=== PATIENT | male | born 1970 | race Caucasian/White ===

== ENCOUNTER → 2021-06-17 15:22 | Outpatient (CLI) | payer OTHER, SELFPAY ==
--- NOTE | ~2021-06-17 | XR_ITS ---
XR wrist RT min 3V DATE: 06/17/2021 15:47 INDICATION: Bilateral wrist pain TECHNIQUE: 4 views COMPARISON: None FINDINGS: There is severe osteoarthritic change at the first carpometacarpal joint. There is osteoart hritis at the metacarpal phalangeal joints with prominent spurring particularly at the heads of the t hird and fourth metacarpal bones. No fracture or dislocation, periosteal reaction or bone destruction, erosive change or chondrocalcino sis is detected. IMPRESSION: Polyarticular osteoarthritis Reviewed, dictated and finalized at location B.
--- NOTE | ~2021-06-17 | XR_ITS ---
XR wrist LT min 3V DATE: 06/17/2021 15:47 INDICATION: Bilateral wrist pain TECHNIQUE: 4 views COMPARISON: None FINDINGS: There is severe osteoarthritic change at the first carpometacarpal joint. There is osteoarthritic change at the metacarpophalangeal joints as well. No fracture or dislocation, periosteal reaction or bone destruction, erosive change or chondrocalcino sis. IMPRESSION: Polyarticular osteoarthritis, particularly at the first carpometacarpal joint Reviewed, dictated and finalized at location B. IMPRESSION: Polyarticular osteoarthritis, particularly at the first carpometaca rpal joint
== END ==
PROVIDERS: Visit Provider Plastic Surgery
DX: M19.031 Primary osteoarthritis, right wrist (principal); M19.032 Primary osteoarthritis, left wrist
CPT/HCPCS: 73110

== ENCOUNTER 2021-08-08 09:32 | Outpatient (CLI) | payer OTHER, SELFPAY ==
--- NOTE | 2021-08-08 11:00 | NEURO_ITS ---
Impression: # Complains of numbness of hands. # Bilateral Carpal Tunnel Syndrome, right more than left. # Right early ulnar neuropathy. # Needle/EMG exam not requested. Nerve Conduction Studies Anti Sensory Summary Table Stim Site NR Peak (ms) P-T Amp (?V) Site1 Site2 Delta-P (ms) Dist (cm) Cb (m/s) Left Median Anti Sensory (2-3nd Digit) Wrist 4.4 20.1 Wrist 2-3nd Digit 4.4 14.0 32 Wrist 4.8 16.2 Wrist 2-3nd Digit 4.4 14.0 32 Right Median Anti Sensory (2-3nd Digit) Wrist 5.5 12.4 Wrist 2-3nd Digit 5.5 14.0 25 Wrist 5.4 16.9 Wrist 2-3nd Digit 5.5 14.0 25 Left Radial Anti Sensory (Base 1st Digit) Wrist 2.4 14.7 Wrist Base 1st Digit 2.4 0.0 Right Radial Anti Sensory (Base 1st Digit) Wrist 2.4 50.4 Wrist Base 1st Digit 2.4 0.0 Left Ulnar Anti Sensory (5th Digit) Wrist 2.6 36.1 Wrist 5th Digit 2.6 14.0 54 Right Ulnar Anti Sensory (5th Digit) Wrist 2.9 9.9 Wrist 5th Digit 2.9 14.0 48 Motor Summary Table Stim Site NR Onset (ms) O-P Amp (mV) Site1 Site2 Delta-0 (ms) Dist (cm) Cb (m/s) Left Median Motor (Abd Poll Brev) Wrist 4.3 1.1 Elbow Wrist 5.2 30.0 58 Elbow 9.5 1.2 Right Median Motor (Abd Poll Brev) Wrist 5.9 1.9 Elbow Wrist 4.9 27.0 55 Elbow 10.8 2.2 Left Ulnar Motor (Abd Dig Minimi) Wrist 2.2 7.7 A Elbow Wrist 5.3 30.0 57 A Elbow 7.5 5.7 B Elbow Wrist 4.2 24.0 57 B Elbow 6.4 5.3 Right Ulnar Motor (Abd Dig Minimi) Wrist 2.5 6.7 A Elbow Wrist 5.8 29.0 50 A Elbow 8.3 5.5 B Elbow Wrist 3.4 20.0 59 B Elbow 5.9 4.6 F Wave Studies NR F-Lat (ms) L-R F-Lat (ms) Left Median (Mrkrs) (Abd Poll Brev) 30.23 0.88 Right Median (Mrkrs) (Abd Poll Brev) 31.11 0.88 Left Ulnar (Mrkrs) (Abd Dig Min) 28.04 0.82 Right Ulnar (Mrkrs) (Abd Dig Min) 28.86 0.82 MTDD
== END 2021-08-08 09:33 | disposition home or self-care (01) ==
LOC: ANHNEURO 09:36
PROVIDERS: PCP Nurse Practitioner; Visit Provider Plastic Surgery
DX: R20.2 Paresthesia of skin (principal); G56.03 Carpal tunnel syndrome, bilateral upper limbs; G56.21 Lesion of ulnar nerve, right upper limb
CPT/HCPCS: 95911

== ENCOUNTER → 2021-09-23 00:43 | Outpatient (CLI) | payer OTHER, SELFPAY ==
[2021-09-24 10:57] LABS: SARS-CoV-2 RNA PCR Negative
== END ==
PROVIDERS: PCP Nurse Practitioner; Visit Provider Plastic Surgery
DX: Z01.812 Encounter for preprocedural laboratory examination (principal); Z20.822 Contact with and (suspected) exposure to COVID-19
CPT/HCPCS: C9803; U0003; U0005

== ENCOUNTER 2021-09-23 14:10 | Outpatient (CLI) | payer OTHER, SELFPAY ==
[2021-09-23 15:13] LABS: Anion Gap 11 mmol/L (8-16); Blood Urea Nitrogen 16 mg/dL (9-20); Calcium 9.9 mg/dL (8.4-10.2); Carbon Dioxide 25 mmol/L (22-30); Chloride 104 mmol/L (98-107); Estimated Glomerular Filt Rate > 60; Glucose 135 mg/dL (65-110); Potassium 4.1 mmol/L (3.4-5.0); Sodium 140 mmol/L (137-145)
== END 2021-09-23 14:11 | disposition home or self-care (01) ==
LOC: ANHSURGERY 14:15
PROVIDERS: Anesthesiology; PCP Nurse Practitioner; Visit Provider Plastic Surgery
DX: Z79.899 Other long term (current) drug therapy (principal)
CPT/HCPCS: 36415; 80048

== ENCOUNTER 2021-09-26 01:41 | Day surgery (SDC) | payer OTHER, SELFPAY ==
[2021-09-23 08:26] VITALS: BMI 29.5
--- NOTE | 2021-09-23 08:33 | PC.NURSE ---
Report to the Outpatient Waiting Room, entrance under the green pavilion located off [facility], at time 6:00 on date 09/26/21. OR Time: 7:30. - You will be asked a series of questions to screen for COVID 19 for your protection. - A mask is required within the hospital. - No visitors are allowed at this time. Preoperative COVID Testing Requirements: COVID TEST 09/23 AT 9:00 No COVID Test needed if: (proof is required; if not received patient will have Rapid Test prior to entry) - Patient has received COVID Vaccine at least 14 days prior to procedure date or - Patient has positive COVID test result within last 90 days of surgery date. COVID Test needed if above criteria is not met If not COVID vaccinated a COVID test must be conducted within 72 hours of surgery and patient is asked to isolate self from time of testing until procedure. You will go to the [facility] for your COVID testing. The [facility] site is located at the corner of [address] [facility]. You will only be called if COVID results are positive and your surgeon may reschedule your elective surgery date. Patients may have clear liquids (water, carbonated beverages, clear teas, apple juice) until 3 hours prior to surgery (4:30) with a maximum of 20 ounces. - No food from midnight until time of surgery Take the following medications with a SIP of water the morning of surgery: NONE Medications to discontinue per physician: VITAMINS/SUPPLEMENTS Date to take last dose: 09/22/21 Please no make-up, nail greek, hairspray, perfume, deodorant, or body powder the day of surgery. No jewelry (including any body piercings) or valuables the day of surgery, leave them at home. Please take a shower or bath the night before, or the morning of, surgery with an antibacterial soap. Wear comfortable, loose fitting clothing. - Jewelry must be removed prior to entering the operating room. Rings and piercings that are not removed may be cut off. - The hospital will not accept responsibility for valuables. - Please leave all valuables, including medications, at home the day of surgery. If you are going home after surgery, a licensed driver operator must drive you home. - NO public transportation without another adult. - We recommend that an adult stay with you for 24 hours following discharge. - We also recommend that you do not drive, make important decision, drink alcoholic beverages, or take any drugs that were not prescribed by your health care provider for at least 24 hours after your discharge time. Follow any additional instructions given to you from your surgeon. Telephone instructions given to GRACE MENDEZ and asked if any additional questions and then verbalized understanding. Patient advised to call surgeon office or pre surgery nurse liaison [phone] if any additional questions.
--- NOTE | 2021-09-25 15:52 | WPDANESEPPF ---
Anes - Initial Pre Proc Eval Procedure: Operation Date: 09/26/21 07:30 Proposed Procedures p Bilateral Open Carpal Tunnel Release - Ankur Parks MD Date/Time: 09/25/21 15:52 Surgeon: Ankur Parks MD Pre Op Diagnosis: bilateral carpal tunnel syndrome Patient Data Age: 51 Gender: M Height: 1.75 m Weight: 90.72 kg Allergies Allergy/AdvReac Type Severity Reaction Status Date / Time No Known Allergies Allergy Verified 09/23/21 08:24 Home Medications Medication Instructions Recorded Confirmed Type adalimumab [Humira(CF) Pen] 40 mg SUBCUT USEASDIRECTD 09/23/21 09/26/21 History atorvastatin 20 mg PO DAILY 09/23/21 09/26/21 History lisinopril-hydrochlorothiazide 1 tablet PO DAILY 09/23/21 09/26/21 History multivitamin [One A Day] 1 tablet PO DAILY 09/23/21 09/26/21 History Patient hx anesthesia problems: none Family hx anesthesia problems: none Results Review: All pre-operative results and documents have been reviewed as part of the pre-operative evaluation. [facility], [facility] Past Medical History Medical History HTN (hypertension) Hyperlipidemia Overweight (BMI 25.0-29.9) Psoriasis Smoker Social History Social History Smoking packs per day: 1 Smoking cigarettes per day: 20.0 Years smoked: 39 Smoking pack-years: 39.00 Smoking status: Current every day smoker Tobacco type: cigarettes Alcohol intake: current Alcohol use details: RARE Substance use: never Substance use type: does not use Living arrangements: with family Spiritual care concerns: No Anes - Eval Final PreProcedure Day of Procedure 09/25/21 15:52 Patient weight: obese Heart: regular rate and rhythm Lungs: clear to auscultation and normal air movement Airway: Mallampati scale class II Neurological: alert and oriented Last oral intake: >/= 8 hours ASA classification: III Emergent: no Anesthetic plan: proceed Anesthesia type and monitoring: general GIVS and LMA Results Review: All pre-operative results and documents have been reviewed as part of the pre-operative evaluation. Informed Consent: The patient's anesthetic plan and its attendant risks and benefits were discussed with the patient/family/POA. Questions were solicited and answers provided to the satisfaction of the patient/family/POA.
[2021-09-26 06:16] VITALS: BP 121/80; PULSE 82; RESP 20; TEMP 35.9; O2SAT 100
[2021-09-26] MEDS: LACTATED RINGERS 1,000 ML 30 ML IV CONT (06:25)
[2021-09-26] MEDS: LIDO 1%/EPINEPHRINE 1:100,000 50 ML VIAL 10 ML INFILTRATE (07:50)
[2021-09-26 08:14] VITALS: BP 115/62; PULSE 73; RESP 16; O2SAT 94
--- NOTE | 2021-09-26 08:17 | W.PM.PROC2 ---
Procedure Note - Detailed Date of Procedure 09/26/21 Pre-op Diagnosis bilateral carpal tunnel syndrome Post-op Diagnosis same Procedure Performed Bilateral open carpal tunnel release Surgeon Ankur Parks MD Anesthesia MAC Description of Procedure The skin over the patient's right and left carpals tunnel was marked in the holding area. He was taken to the operating room where the was placed supine on the operating table. A time-out was held and confirmed. The extremities were prepped and draped in usual fashion. The surgical sites was marked for the incisions and both were locally infiltrated with 1% lidocaine with epinephrine. The pneumatic tourniquet was utilized on the right an Esmarch on the left due to the location of the IV in the forearm. The incision was made 1st on the right as marked and dissection was carried bluntly through the subcutaneous tissue to the palmar aponeurosis. This and the transverse carpal retinaculum were incised with a 15 blade opening the canal. Under 3 point retraction the ligament was divided distally and proximally to completely release it. No unusual anatomy was noted. The wound was closed with interrupted nylon suture. The tourniquet was released. The usual bandage was applied. Attention turned to the left side for the hand and distal forearm were wrapped with the Esmarch for exsanguination and the Esmarch was left wrapped on the mid right forearm for the tourniquet. The incision was incised as marked and dissection was carried bluntly through the subcutaneous tissue. The palmar fascia transverse retinaculum were incised with a 15. Blade opening the canal. Under 3 point retraction the ligament was divided distally and proximally to release it. No unusual anatomy was noted on either side. The skin wound on this side was closed with interrupted 5 0 nylon. The usual bandage was applied and the patient was discharged from the operating stable condition. Estimated Blood Loss 0 Tourniquet Time 20 Drains No Packing No Pathology none sent Complications No immediate complications Condition stable Disposition same day
[2021-09-26 08:45] VITALS: BP 122/85
== END 2021-09-26 09:00 | disposition home or self-care (01) ==
PROVIDERS: PCP Nurse Practitioner; Visit Provider Plastic Surgery
PROC: (CPT 64721; principal; 2021-09-26 07:30)
DX: G56.03 Carpal tunnel syndrome, bilateral upper limbs (principal); I10 Essential (primary) hypertension; E78.5 Hyperlipidemia, unspecified; L40.9 Psoriasis, unspecified; F17.210 Nicotine dependence, cigarettes, uncomplicated; E66.9 Obesity, unspecified; Z68.30 Body mass index [BMI] 30.0-30.9, adult
CPT/HCPCS: 64721; 36415; 80048; A9270; C9803; J2250; J2704; J3010; J7120; U0003; U0005

== ENCOUNTER 2024-03-30 08:16 | Emergency (ER) | payer OTHER, SELFPAY ==
[2024-03-30 08:42] VITALS: BP 126/83; PULSE 75; RESP 16; TEMP 36.2; O2SAT 100
--- NOTE | 2024-03-30 08:48 | ED.LOWEXIN ---
HPI - Extremity Injury (Lower) General Chief Complaint: Extremity Injury, Lower Stated Complaint: pain in rt foot from screw injury Time Seen by Provider: 03/30/24 08:48 Source: patient, RN notes reviewed and old records reviewed Mode of arrival: ambulatory Limitations: no limitations History of Present Illness HPI Narrative: patient presents complaining of right foot pain. He was doing a project, a screw went through his shoe and into the arch of the right foot. He reports injury happened about 1 week ago. He is unsure of tetanus status. He states that he has had increased pain to the site of the injury over the past couple of days and is Noticing some purulent drainage. . He denies any fever, chills, sweats. In addition, he complains that his left ear is juicy . States pain for about 2 months. Denies injury or trauma. Has been using [id number] swimmer's ear drops without good relief. Related Data Home Medications Medication Instructions Recorded Confirmed adalimumab 40 mg/0.4 mL 40 mg subcut USEASDIRECTD 09/23/21 09/26/21 subcutaneous pen kit (Humira(CF) Pen) atorvastatin 20 mg tablet mg 03/30/24 hydrochlorothiazide 25 mg tablet mg 03/30/24 03/30/24 Allergies Allergy/AdvReac Type Severity Reaction Status Date / Time No Known Allergies Allergy Verified 03/30/24 08:44 Review of Systems Review of Systems: All systems reviewed & are unremarkable except as noted in HPI and below Constitutional: Constitutional: Reports no additional constitutional complaints ENT: Reports system reviewed and no additional complaints, except as documented and Reports otalgia Cardiovascular: Cardiovascular: Reports no additional cardiovascular complaints Respiratory: Respiratory: Reports no additional respiratory complaints Gastrointestinal: Gastrointestinal: Reports no additional gastrointestinal complaints Integumentary/Breasts: Skin/Breast: Reports as per HPI [facility] Past Medical History Medical History HTN (hypertension) Hyperlipidemia Overweight (BMI 25.0-29.9) Psoriasis Smoker Social History Social History Smoking packs per day: 1 Smoking cigarettes per day: 20.0 Years smoked: 39 Smoking pack-years: 39.00 Smoking status: Current every day smoker Tobacco type: cigarettes Alcohol intake: current Alcohol use details: RARE Substance use: never Substance use type: does not use Living arrangements: with family Spiritual care concerns: No Comments At the time of my signature, I reviewed and agree with the nursing past medical, surgical, social, and family history. There is no relevant family history pertinent to the patient complaint. Exam Const: General: cooperative, no acute distress, alert and awake Orientation/consciousness: oriented to person, oriented to place and oriented to time HENMT: Head: normal to inspection Ears: TM's normal bilaterally and other ( Left ear canal with erythema, drainage, tenderness) Mouth: Yes oropharynx normal Neck: Lymphatic: no lymphadenopathy noted Resp: Effort & Inspection: normal respiratory effort and able to speak in complete sentences Auscultation: clear to auscultation bilaterally, no crackles, no rales, no rhonchi and no wheezes Cardio: Palpation: normal PMI Rate: regular rate Rhythm: regular rhythm Heart sounds: S1 normal heart sound present and S2 normal heart sound present Skin: Trauma: puncture ( right foot, approx 1 cm with some surrounding erythema and induration) Neuro: General: oriented to person, oriented to place and oriented to time Cranial nerves: Yes CN's II-XII intact bilaterally Psych: Appearance: grossly normal Thought process: Normal thought process present Insight: Good insight present (Psych) Judgement: Good judgement present (Psych) Course Course Level of Care: Express Care Visit Vital Signs Vital signs: Vital Signs Temperature 97.1
[2024-03-30] MEDS: TETANUS,DIPHTHERIA,AC PERTUSSIS ADULT (0.5 ML) BOOSTRIX IM (09:11)
== END 2024-03-30 09:17 | disposition home or self-care (01) ==
PROVIDERS: Emergency Provider Nurse Practitioner Family
DX: S91.331A Puncture wound without foreign body, right foot, initial encounter (principal); L08.9 Local infection of the skin and subcutaneous tissue, unspecified; W26.8XXA Contact with other sharp object(s), not elsewhere classified, initial encounter; Z23 Encounter for immunization; F17.210 Nicotine dependence, cigarettes, uncomplicated; I10 Essential (primary) hypertension; E78.5 Hyperlipidemia, unspecified; L40.9 Psoriasis, unspecified
CPT/HCPCS: 90471; 90715; 99213; G0463

== ENCOUNTER 2024-07-31 08:01 | Emergency (ER) | payer OTHER, SELFPAY ==
--- NOTE | 2024-07-31 08:10 | ED.GENADULT ---
HPI - General Adult General Chief complaint: Extremity Problem,Nontraumatic Stated complaint: knee pain Time Seen by Provider: 07/31/24 08:10 Source: patient Mode of arrival: ambulatory Limitations: no limitations History of Present Illness HPI narrative: 54-year-old male patient presents to the [facility] with complaints of bilateral knee pain but more so to the left knee. Patient states that he works on his knees a lot does wear knee pads during working. 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 Patient states that the left knee has been swollen, red and feels that it might be infected. Patient states has been like this for the past 3-4 days. Denies any fevers, body aches or chills. Patient denies any issues with walking. Patient denies any specific injury that he is aware of Related Data Home Medications Medication Instructions Recorded Confirmed atorvastatin 20 mg tablet 20 mg DIRECTED 03/30/24 07/31/24 hydrochlorothiazide 25 mg tablet 25 mg DIRECTED 03/30/24 07/31/24 adalimumab-ryvk 40 mg/0.4 mL 40 mg subcut DIRECTED 07/31/24 07/31/24 subcutaneous auto-injector kit Allergies Allergy/AdvReac Type Severity Reaction Status Date / Time No Known Allergies Allergy Verified 07/31/24 08:12 Review of Systems Review of Systems: CONSTITUTIONAL: Denies fever, chills, or sweats. EYES: Denies visual changes, redness, or discharge. ENT: Denies rhinorrhea, congestion, sore throat, or otalgia. CARDIOVASCULAR: Denies chest pain, palpitations, or edema. RESPIRATORY: Denies cough or dyspnea. GASTROINTESTINAL: Denies abdominal pain, nausea, vomiting, or diarrhea. GENITOURINARY: Denies dysuria or hematuria. SKIN: Denies rash or itching. MUSCULOSKELETAL: Denies back pain, joint pain, or myalgia. positive left knee pain times 3-4 days NEUROLOGIC: Denies headache, numbness, or weakness. PSYCHIATRIC: Denies anxiety or depression. [facility] Past Medical History Medical History HTN (hypertension) Hyperlipidemia Overweight (BMI 25.0-29.9) Psoriasis Smoker Social History Social History Smoking packs per day: 1 Smoking cigarettes per day: 20.0 Years smoked: 39 Smoking pack-years: 39.00 Smoking status: Current every day smoker Tobacco type: cigarettes Alcohol intake: current Alcohol use details: RARE Substance use: never Substance use type: does not use Living arrangements: with family Spiritual care concerns: No Comments At the time of my signature I agree with nursing past medical history, surgical, social, and family history. There is no relevant family history pertinent to the presenting complaint. Exam Narrative: GENERAL: Well-appearing, well-nourished, and in no acute distress. HEAD: Normocephalic, atraumatic. EYES: PERRLA and EOMI. ENT: Nares clear, no rhinorrhea or epistaxis. Mucous membranes moist. NECK: Supple. No lymphadenopathy CHEST: Clear to auscultation. No respiratory distress. HEART: Regular rate and rhythm. No murmur heard. Normal peripheral pulses. ABDOMEN: Soft, nontender, nondistended, normal active bowel sounds. EXTREMITIES: Patient is able to bear weight and ambulate without pain. No surface trauma, STS, or obvious effusion. Patient has a approximately 2.5 cm in diameter scabbed burn area to the lateral distal of the left knee. No discharge is present at this time. overlying erythema and warmth present to the left knee that streaks down to the lower extremity. The L knee is with/without obvious asymmetry or deformity when compared to the R knee. there is swelling noted to the Left distal lower extremity as compared to the right side. Patient is able to do deep knee bend with symmetry, fully extend knee, internal and external rotation. No tendernss to palpation of the patella, no effusion or ballottement. No tenderness over the infrapatellar tendon. No tenderness over the medial or lateral joint lone ot the medial or lateral tibial plateaus. no tenderness over the proximal fibular head. no tenderness, fullness, or mass of the popliteal fossa. No quadriceps tenderness. No laxity of the ACL, PCL, MCL, or LCL. No collateral ligament laxity to valgus or vargus stress. Negative adelfo/drawer sign. Negative Roseann. Negative Apley compression and/or distraction. Distal motor and neurovascular status intact. SKIN: Warm, dry, no rash. NEURO: No focal deficits. Alert and oriented x3. Course Course Level of Care: Express Care Visit Vital Signs Vital signs: Vital Signs Temperature 36.3 C L 07/31/24 08:12 Pulse Rate 100 07/31/24 08:12 Respiratory Rate 18 07/31/24 08:12 Blood Pressure 125/84 07/31/24 08:12 Pulse Oximetry 99 07/31/24 08:12 Oxygen Delivery Room Air 07/31/24 08:12 Temperature 36.3 C L 07/31/24 08:12 Pulse Rate 100 07/31/24 08:12 Respiratory Rate 18 07/31/24 08:12 Blood Pressure 125/84 07/31/24 08:12 Pulse Oximetry 99 07/31/24 08:12 Oxygen Delivery Room Air 07/31/24 08:12 vital signs reviewed Medical Decision Making MDM Narrative Medical decision making narrative: discussed with patient most likely has a cellulitis infection of the left lower leg due to what appears to be a a small burn area that he got at work. Discussed with patient we will discharge him home with oral antibiotics and topical antibiotic to put on the scabbed area. Discussed with patient to make sure that he inspects the knee area every day after work and tends to any wounds he would have gotten that day to decrease risk of worsening infection such as cellulitis. Patient verbalized understanding denies any other questions or concerns at this time. Differential Diagnosis Differential Diagnosis: differential diagnosis: Knee contusion, sprain, ligament injury, patellar dislocation, joint dislocation, patella or tibial plateau fracture, Alexandra's cyst, DVT, meniscus tear, PCL tear, prepatellar bursitis, septic joint, gout, tumor. Children: [id number] or Alejandra-Schlatter disease. Vital Signs Vital Signs: Vital Signs Temperature 36.3 C L 07/31/24 08:12 Pulse Rate 100 07/31/24 08:12 Respiratory Rate 18 07/31/24 08:12 Blood Pressure 125/84 07/31/24 08:12 Pulse Oximetry 99 07/31/24 08:12 Oxygen Delivery Room Air 07/31/24 08:12 Temperature 36.3 C L 07/31/24 08:12 Pulse Rate 100 07/31/24 08:12 Respiratory Rate 18 07/31/24 08:12 Blood Pressure 125/84 07/31/24 08:12 Pulse Oximetry 99 07/31/24 08:12 Oxygen Delivery Room Air 07/31/24 08:12 Critical Care Time Critical Care Time Critical Care Time: No Discharge Plan Discharge Clinical Impression: Cellulitis of knee, left Patient Disposition: Home, Self-Care Condition: Stable Instructions: Antibiotic Form, Cellulitis (ED) Additional Instructions: Take the prescribed antibiotic medicine you are given as directed until it is gone. Take it even if you feel better. It treats the infection and stops it from returning. Not taking all the medicine can make future infections hard to treat. Keep the infected area clean. When possible, raise the infected area above the level of your heart. This helps keep swelling down. May take Tylenol ibuprofen as needed for pain Take your temperature once a day for a week to monitor for fevers. If you do spike a fever please call your doctor right away. Wash your hands often to prevent spreading the infection. In the future, wash your hands before and after you touch cuts, scratches, or bandages. This will help prevent infection. Please call your doctor today and be scheduled for follow-up appointments in regards to being evaluated for vascular disease. When to call your healthcare provider Call your healthcare provider immediately if you have any of the following: Difficulty or pain when moving the joints above or below the infected area Discharge or pus draining from the area Fever of 100.4?F (38?C) or higher, or as directed by your healthcare provider Pain that gets worse in or around the infected Redness that gets worse in or around the infected area, particularly if the area of redness expands to a wider area Shaking chills Swelling of the infected area Vomiting Prescriptions: New cephalexin 500 mg capsule 500 mg PO Q6H 7 Days Qty: 28 0RF mupirocin 2 % ointment 1 applic topical BID Qty: 22 0RF No Action atorvastatin 20 mg tablet 20 mg DIRECTED hydrochlorothiazide 25 mg Tablet 25 mg DIRECTED adalimumab-ryvk 40 mg/0.4 mL auto-injector, kit 40 mg SUBCUT DIRECTED Follow-up/Referrals: Cora,ALICIA Gifford [Primary Care Provider] - Time of Disposition: 08:25
[2024-07-31 08:12] VITALS: BP 125/84; PULSE 100; RESP 18; TEMP 36.3; O2SAT 99
== END 2024-07-31 08:28 | disposition home or self-care (01) ==
PROVIDERS: Emergency Provider Nurse Practitioner Family; PCP Nurse Practitioner
DX: L03.116 Cellulitis of left lower limb (principal); F17.210 Nicotine dependence, cigarettes, uncomplicated; I10 Essential (primary) hypertension; E78.5 Hyperlipidemia, unspecified; L40.9 Psoriasis, unspecified
CPT/HCPCS: 99213; G0463